=== PATIENT | male | born 1990 | race African-American/Black ===

== ENCOUNTER 2016-10-04 18:47 | Emergency (ER) | payer BC, OTHER ==
[~2016-10-04] VITALS: Ht 175.3 cm; Wt 61.2 kg
[~2016-10-04 18:47] MED LIST: ALPRAZOLAM 0.0.25 MG PO; AUGMENTIN 875-1 EACH PO; NOHOMEMEDICATIONS
[2016-10-04] MEDS ORDERED: CLARITIN-D 12 H1 TA1 PO (19:37)
[2016-10-04] MEDS ORDERED: VENTOLIN HFA 1818 GM INH (19:37)
[2016-10-04] MEDS ORDERED: TESSALON PERLE100 MG PO (19:37)
[2016-10-04] MEDS ORDERED: MUCINEX TA600 MG/TA2 PO (19:37)
[2016-10-04 20:13] VITALS: BP 134/95
== END 2016-10-04 20:15 | disposition home or self-care (01) ==
LOC: ER 18:47
DX: J01.90 Acute sinusitis, unspecified (principal); J40 Bronchitis, not specified as acute or chronic

== ENCOUNTER 2020-03-19 01:42 | Emergency (ER) | payer OTHER ==
[~2020-03-19] VITALS: Ht 177.8 cm; Wt 63.5 kg
[~2020-03-19 01:42] MED LIST changes: +CLARITIN-D 12 H1 TA1 PO; +MUCINEX TA600 MG/TA2 PO; +TESSALON PERLE100 MG PO; +VENTOLIN HFA 1818 GM INH
[2020-03-19] MEDS ORDERED: IBUPROFEN25 GM PO (01:51)
[2020-03-19 03:30] VITALS: BP 118/78
== END 2020-03-19 03:30 | disposition home or self-care (01) ==
LOC: ER 01:42
DX: M25.512 Pain in left shoulder (principal); Z79.1 Long term (current) use of non-steroidal anti-inflammatories (NSAID); V79.9XXA Bus occupant (driver) (passenger) injured in unspecified traffic accident, initial encounter; Y93.89 Activity, other specified; Y92.89 Other specified places as the place of occurrence of the external cause; Y99.8 Other external cause status